=== PATIENT | female | born 1985 | race Caucasian/White ===

== ENCOUNTER 2018-10-08 01:25 | Emergency (ER) | payer SELFPAY ==
[2018-10-08 05:32] LABS: URINE BLOOD (Dip) POC Trace-lysed (NEGATIVE); URINE GLUCOSE (Dip) POC Negative (NEGATIVE); URINE KETONES (Dip) POC 1+ (NEGATIVE); URINE LEUKOCYTE EST (Dip) POC Trace (NEGATIVE); URINE NITRITE (Dip) POC Negative (NEGATIVE); URINE TOTAL PROTEIN POC 1+ (NEGATIVE)
[2018-10-08 05:32] LABS: URINE PH (Dip) POC 5.5 (5.0-8.5)
[2018-10-08] MEDS: KETOROLAC 30 MG INJ IM (06:07)
== END 2018-10-08 07:00 | disposition home or self-care (01) ==
LOC: FTE 01:25
DX: M62.830 Muscle spasm of back (principal); R40.2412 Glasgow coma scale score 13-15, at arrival to emergency department
CPT/HCPCS: 81003; 81025; 87591; 96372; 99284-25